=== PATIENT | female | born 1940 | race Caucasian/White ===

== ENCOUNTER 2020-02-16 17:56 | Emergency (ER) | payer MEDICARE ==
[~2020-02-16] VITALS: Ht 160 cm; Wt 70.8 kg
[2020-02-16 18:20] VITALS: BP 163/111
--- NOTE | 2020-02-16 18:20 | NUR ---
ED Nurse Note: Patient walked into ED w/ daughter post fall 30 min ago, patient has laceration on l Addendum: 02/16/20 at 1923 by DANICA laceration on left hand, denies head trauma, no s/s of acute distress.
--- NOTE | 2020-02-16 18:38 | Emergency Room Report ---
History of Present Illness General Chief Complaint: Laceration Source: Patient Present Illness HPI 79-year-old female history of anxiety, arthritis, hypertension, hyperlipidemia currently taking medication controlled here with daughter due to laceration status post fall on right hand. Denies any head injury and all other trauma. Reports that she was about to get up and francine after her grandson that she miss ed a step and she landed on her hand. About 2 cm linear laceration on dorsum of right hand. Minimal bleeding noted. No pus drainage noted. Patient has range of motion of affected area. Denies any tingling and numbness. Denies any pain radiation. Is not up-to-date with tetanus shot and is requesting one. Daughter is concerned with her antibiotics to be given or not however then she request them after she speaks to her sister over the phone. Patient has not taken medication for symptom relief. Patient is on daily dose of naproxen most likely due to osteoarthritis. Sitting comfortably with stable vital signs. Patient is not taking any other blood thinners. Patient is neurovascularly intact. Denies chest pain, shortness of breath, headache and dizziness, blurry vision. Has not taken her blood pressure medication yet. Allergies: Coded Allergies: No Known Allergies (Unverified , 02/16/20) COVID-19 Screening Contact w/high risk pt: No Experienced COVID-19 symptoms?: No COVID-19 Testing performed MICROBIOLOGY LAB MANAGER: No Patient History Past Medical History: see triage record Past Surgical History: none Pertinent Family History: none Last Menstrual Period: na Immunizations: other - Tdap given today Reviewed Nursing Documentation: PMH: Agreed; PSxH: Agreed Nursing Documentation-PMH Past Medical History: No History, Except For Hx Hypertension: Yes History Of Psychiatric Problem: Yes - ANXIETY, depression Review of Systems All Other Systems: negative except mentioned in HPI Physical Exam Vital Signs Date Time Temp Pulse Resp B/P (MAP) Pulse Ox O2 Delivery O2 Flow Rate FiO2 02/16/20 18:09 98.1 72 19 163/111 (128) 98 Room Air Sp02 EP Interpretation: reviewed, abnormal - Elevated blood pressure however daughter reports that patient is extremely anxious and has not yet taken her blood pressure medication General Appearance: no apparent distress, alert, GCS 15, non-toxic Head: normocephalic, atraumatic Eyes: bilateral eye normal inspection, bilateral eye PERRL ENT: hearing grossly normal, normal pharynx, no angioedema, normal voice Neck: full range of motion, supple/symm/no masses Respiratory: chest non-tender, lungs clear, normal breath sounds, no rhonchi, no respiratory distress, no retraction, speaking full sentences Cardiovascular #1: regular rate, rhythm, no edema, no murmur Cardiovascular #2: 2+ radial (R), 2+ radial (L) Gastrointestinal: normal bowel sounds, non tender, soft, non-distended, no guarding, no rebound Rectal: deferred Musculoskeletal: back normal, non-tender Neurologic: alert, motor strength/tone normal, oriented x3, sensory intact, responsive, speech normal Psychiatric: judgement/insight normal, memory normal, mood/affect normal, no suicidal/homicidal ideation Skin: laceration - 2 cm linear laceration noted dorsum of right hand Lymphatic: no adenopathy Procedures Laceration/Wound Repair Laceration/Wound Repair : Consent: Verbal Wound Location: upper extremity - Right hand Wound's Depth, Shape: superficial Wound Length (cm): 2 Wound Explored: clean Betadine Prep?: Yes Anesthesia: 1% Lidocaine Volume Anesthetic (ccs): 5 Wound Repaired With: sutures Suture Size/Type: 4:0, proline Number of Sutures: 9 Layer Closure?: Yes Sterile Dressing Applied?: Yes Splint Applied?: Yes Type of Splint Applied: velcro wrist Sling Applied?: No Patient Tolerated: Well Complications: None Medical Decision Making PA Attestation All my diagnosis and treatment plans were reviewed ad discussed with my supervising physician Dr. Michel Diagnostic Impression: Primary Impression: Laceration of hand ER Course 79-year-old female history of anxiety, arthritis, hypertension, hyperlipidemia currently taking medication controlled here with daughter due to laceration status post fall on right hand. Denies any head injury and all other trauma. Reports that she was about to get up and francine after her grandson that she missed a step and she landed on her hand. About 2 cm linear laceration on dorsum of right hand. Minimal bleeding noted. No pus drainage noted. Patient has range of motion of affected area. Denies any tingling and numbness. Denies any pain radiation. Is not up-to-date with tetanus shot and is requesting one. Daughter is concerned with her antibiotics to be given or not however then she request them after she speaks to her sister over the phone. Patient has not taken medication for symptom relief. Patient is on daily dose of naproxen most likely due to osteoarthritis. Sitting comfortably with stable vital signs. Patient is not taking any other blood thinners. Patient is neurovascularly intact. Denies chest pain, shortness of breath, headache and dizziness, blurry vision. Has not taken her blood pressure medication yet. Ddx considered but are not limited to : Superficial laceration, deep laceration, tendon involvement with laceration, laceration with foreign body Vital signs: are WNL, pt. is afebrile H&PE are most consistent with: Superficial laceration right hand ORDERS: Right hand x-ray, Keflex, Tylenol ED INTERVENTIONS: Wound clean and dressed, sutures were applied DISCHARGE: At this time pt. is stable for d/c to home. Will provide printed patient care instructions, and any necessary prescriptions. Care plan and follow up instructions have been discussed with the patient prior to discharge. Patient take medication as directed, sutures to be removed in 7 to 10 days, if worsening symptoms return to the emergency room. Follow-up primary doctor. Other X-Ray Diagnostic Results Other X-Ray Diagnostic Results : X-Ray ordered: Right hand x-ray # of Views/Limited Vs Complete: 3 View Indication: Pain EP Interpretation: Yes PA Xray: Interpretation reviewed, by supervising MD, and agrees with findings. Interpretation: no dislocation, no soft tissue swelling, no fractures Impression: No acute disease Electronically Signed by: Betty Pickard PA-C Last Vital Signs Date Time Temp Pulse Resp B/P (MAP) Pulse Ox O2 Delivery O2 Flow Rate FiO2 02/16/20 18:09 98.1 72 19 163/111 (128) 98 Room Air Disposition: HOME, SELF-CARE Condition: Stable Scripts Acetaminophen* (TYLENOL EXTRA STRENGTH*) 500 Mg Tablet 500 MG ORAL Q8H PRN for Prn Headache/Temp > 101, #30 TAB 0 Refills Prov: Betty Landon 02/16/20 Cephalexin* (KEFLEX*) 500 Mg Capsule 500 MG ORAL EVERY 12 HOURS, #14 CAP 0 Refills Prov: Betty Landon 02/16/20 Referrals: NON PHYSICIAN (PCP) Patient Instructions: Laceration Care, Adult Additional Instructions: Take medication as directed, follow with your primary care provider, if worsening symptoms return to the emergency room sutures to be removed in 7 to 10 days. Keep splint on until sutures are removed. Betty Landon Feb 16, 2020 18:38
[2020-02-16] MEDS ORDERED: Cephalexin 250mg/5ml Susp 100mL Bottle ORAL ONE (19:00)
[2020-02-16] MEDS ORDERED: Tetanus/Diptheria/Pertussis IM ONE (19:00)
[2020-02-16] MEDS ORDERED: Bacitracin Oint UD TOPIC ONE (19:00)
[2020-02-16] MEDS ORDERED: Cephalexin 500mg cap ORAL ONE (19:15)
--- NOTE | 2020-02-16 19:18 | Diagnostic Imaging Report ---
EXAM: XR Right Hand Complete, 3 or More Views CLINICAL HISTORY: TRAUMA TECHNIQUE: Frontal, lateral and oblique views of the right hand. COMPARISON: None. FINDINGS: Bones/joints: Degenerative disease at the first carpometacarpal joint. Narrowing of the distal and proximal interphalangeal joint second acute discogenic and interphalangeal joint of the first digit consistent with osteoarthritis. No dislocation. Soft tissues: Unremarkable. No radiopaque foreign body. IMPRESSION: Osteoarthritis. No acute fracture or subluxation.
[2020-02-16] MEDS ORDERED: CEPHALEXIN500 MG ORAL (19:23)
[2020-02-16] MEDS ORDERED: TYLENOL EXTRA500 MG ORAL (19:23)
[2020-02-16 19:29] VITALS: BP 163/111
--- NOTE | 2020-02-16 19:29 | NUR ---
ED Nurse Note: Pt cleared by health care Provider for discharge. DC instructions/prescription was given and explained to pt and verbalized understanding of teachings. Removed ID band. Laceration covered w/ Bacitracin and gauze, splint applied to right wrist. Pt is AAO x4, ambulatory and left with all personal belongings.
== END 2020-02-16 19:29 | disposition home or self-care (01) ==
LOC: EMR 18:23
DX: S61.411A Laceration without foreign body of right hand, initial encounter (principal); Z23 Encounter for immunization; I10 Essential (primary) hypertension; F32.9 Major depressive disorder, single episode, unspecified; F41.9 Anxiety disorder, unspecified; E78.5 Hyperlipidemia, unspecified; W19.XXXA Unspecified fall, initial encounter; Y92.9 Unspecified place or not applicable
CPT/HCPCS: 90471; 90715; 99283